=== PATIENT | female | born 2000 | race Caucasian/White ===

== ENCOUNTER 2021-04-04 15:05 | Emergency (ER) | payer BC ==
[~2021-04-04] VITALS: Ht 167.6 cm; Wt 52.3 kg
[2021-04-04 15:12] VITALS: TEMP 98.5
[2021-04-04] MEDS ORDERED: WELLBUTRIN SR150 M1 PO (15:16)
[2021-04-04] MEDS ORDERED: LEXAPRO20 MG PO (15:16)
[2021-04-04 16:17] LABS: BASO # 0.1 (0.0-0.2); BASO % 1.5 % (0.0-2.0); EOS # 0.1 (0.0-0.7); EOS % 0.9 % (0-4.0); GRAN # 3.5 (1.4-6.5); GRAN % 52.4 % (42.2-75.2); HEMATOCRIT 38.6 % (35.0-45.0); HEMOGLOBIN 13.1 g/dl (12.0-15.0); LYMPH # 2.3 (1.2-3.4); MEAN CELL VOLUME 92 fl (80.0-95.0); MEAN CORPUSCULAR HEMOGLOBIN 31 pg (26.0-32.0); MEAN CORPUSCULAR HGB CONC 34 g/dl (33.0-37.0); MEAN PLATELET VOLUME 9.4 fl (7.4-10.4); MONO # 0.8 (0.1-0.6); MONO % 11.1 % (1.7-9.3); PLATELET COUNT 356 K/mm3 (130-400)
[2021-04-04 16:51] LABS: ALANINE AMINOTRANSFERASE 20 U/L (4-34); ALBUMIN 3.9 gm/dL (3.5-5.0); ALKALINE PHOSPHATASE 59 U/L (50-136); ANION GAP 1 mmol/L (7-16); AST,SGOT 53 U/L (15-37); BILIRUBIN,TOTAL 0.4 mg/dL (0.0-1.0); BLOOD UREA NITROGEN 8 mg/dL (7-17); CALCIUM 9.1 mg/dL (8.4-10.2); CARBON DIOXIDE 35 mmol/L (22-30); CHLORIDE 97 mmol/L (98-107); CREATININE, serum 0.79 (0.52-1.25); GLUCOSE 90 mg/dL (74-106); SODIUM 133 mmol/L (137-145); TOTAL PROTEIN 7.3 gm/dL (6.4-8.2)
[2021-04-04 16:58] LABS: POTASSIUM 2.7 mmol/L (3.4-5.0)
[2021-04-04 17:49] LABS: C-REACTIVE PROTEIN < 0.5 mg/dL (0.0-0.9)
[2021-04-04] MEDS ORDERED: K-DUR 10 MEQ T10 MEQ PO (18:05)
[2021-04-04 18:19] VITALS: BP 110/73; PULSE 87
== END 2021-04-04 18:19 | disposition home or self-care (01) ==
LOC: COL.ER 15:05
PROVIDERS: Nurse Practitioner
DX: F41.9 Anxiety disorder, unspecified (principal); R07.89 Other chest pain; E87.6 Hypokalemia; Z79.899 Other long term (current) drug therapy
CPT/HCPCS: J2060; J7030